=== PATIENT | female | born 1960 | race African-American/Black ===

== ENCOUNTER 2021-08-25 12:54 | Emergency (ER) | payer OTHER ==
[~2021-08-25] VITALS: Ht 154.9 cm; Wt 89.4 kg
[~2021-08-25 12:54] MED LIST: CELEBREX 200 M200 M1 PO; NEURONTIN 300300 M1 PO; NORCO 5-325 TA1 EACH PO
[2021-08-25 13:01] VITALS: BP 138/103
[2021-08-25] MEDS ORDERED: ZPAK PO (14:23)
== END 2021-08-25 14:39 | disposition home or self-care (01) ==
LOC: ER 12:54
PROVIDERS: Emergency Medicine
DX: J06.9 Acute upper respiratory infection, unspecified (principal); Z20.822 Contact with and (suspected) exposure to COVID-19; J40 Bronchitis, not specified as acute or chronic; Z98.890 Other specified postprocedural states; Z87.442 Personal history of urinary calculi; Z79.899 Other long term (current) drug therapy; Z88.5 Allergy status to narcotic agent; Z88.2 Allergy status to sulfonamides; Z91.040 Latex allergy status